=== PATIENT | female | born 1945 | race Caucasian/White ===

== ENCOUNTER 2022-11-27 13:00 | Outpatient (RCR) | payer MEDICARE, OTHER, SELFPAY ==
--- NOTE | 2022-11-17 12:14 | OT.OPOE ---
OT Outpatient Ortho Eval OT Outpatient Ortho Eval Start: 11/17/22 10:36 Freq: Status: Active Protocol: Document 11/17/22 10:41 YANYN (Rec: 11/17/22 10:46 RAUL [id number]) E-signed By Alyce Christian, OTR/L, CLT OT OP Ortho Eval Details Type Type Eval Complexity Low Insurance Information Insurance Information Medicare B Outpatient History/Precautions Current Condition/Medical Diagnosis Referring Provider Yoana Sarkar Treatment Diagnosis S/P Radial Head fracture, R elbow pain Date of Onset 10/15/22 Medical Conditions HTN,Arthritis,Osteoporosis Other Conditions Pt is very healthy, opting to not take Fosamax at this time. 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 THey are getting ready for 1 month stay in [facility] to visit daughters and grandson. Social History Employment Status Retired Hobbies reading, baking, exercising, travelling Fitness 3x/week [place] at 52 [facility] Ortho Subjective Subjective Subjective Solveig Bernadette is an active healthy 77 y/o woman who feels coming down the stage stairs at the [facility] on . She struck both palms and knees ( which she had replaced B in Apr and Jul 2021 .) Pt is having R hand and elbow stiffness, R CMC sore after being in posterior elbow splint with LIDA wrapping, had edema trapped for 2 days before re-wrapping helped. Splinted for 1 week, sling for 2 weeks, now weaned off. She has returned to her fitness classes per [place] from [facility], just not doing resistance with R UE. Pt is finding it tender at end range for managing steering wheel ?turning, reaching behind her self while dressing /mati care, chopping vegetables and carrying dishes across kitchen. Pain Assessment Pain Present Pain Present Pain Reported Location R elbow, R CMC Description Pressure,Dull, Achy,Throbbing, With Movement,Heaviness Intensity 3 Goniometric Comments Goniometric Comments Goniometric Comments Tissue Texture-- Pt with spongy tissue pocketting at medial elbow, point tender over R proximal radial head. Good tissue temperature, normal color. Limb appearance-- Pt w significant OA changes at B CMC joints with squaring noted . [place] 10/10 opposition and 3/4 retropulsion. AROM-- Springy end feel at DONOVAN and TEF, supination and pronation, R WR EX are tender, pulls to radial head for the last 5-10 degrees. MMT tested gently for R WR, guarded only for resisted WR EX 4/5, all other planes 5/5. Outsoles Channel Opener in pos 1 is 35# R (tender , pulls to radial head) and 54 # L. Pos 2 is 25# R (pulls at medial elbow) and 54# L. Victoria pinch is 13# R (CMC tender ), 16# L. 3 pt pinch is 6# R (thumb to elbow tender) and 18#L ( cmc 3/10 tender L). Upper Extremity Special Tests Elbow Cozens Test Negative Left,Positive Right Tenosynovitis Wrist Finklestein Test Negative Left,Negative Right Degenerative Arthritis Hand Trapeziometacarpal Joint Grind Test Positive Left,Positive Right Upper Extremity Special Tests Comments Comments Denies numbness or tingling in B hands OT Problems Problems Problems Decreased Strength,Decreased Range of Motion,Lifting, Gripping,Pinching Other Problems Opening Containers,Dressing Assessment Assessment Assessment Pt is recovering well from her R radial head fracture but is still having some ?difficulty with edema, pain, ROM and strength loss of R thumb/wrist /elbow, along with exacerbation of R CMC arthritis She would benefit from skilled OT to address these areas. Occupational Therapy Treatment Plan - OP Potential Rehabilitation Potential Excellent Set Goals Goals Set with Patient Yes Goals Goals In 12 weeks, pt will demonstrate:? 1) Decreased pn to <2/10 80% of the time with sustained gripping, carrying groceries, reading books and exercise classes. 2) I HEP for stretching, gradual strengthening and self mgmt strategies. 3) improved R student development dean strength to 40# and 3 pinch to 10# with R thumb pain < 1/10. Target Date 02/13/23 Progress set Treatment Plan Treatment Plan Evaluation,Edema Control, Iontophoresis,Joint Mobilization,Manual Therapy, Ultrasound,Therapeutic Exercise,Self-Care/Home Management,Education Expected Frequency 1-2x Week Expected Duration 6-8 Weeks Expected Duration Comments pt will be travelling to [place] -01/07/23 Comment Summary CMC care, look at splinting options, add putty HEP for student development dean/pinch, 1# vs band. Certification Certification I Certify That: Therapy Services Provided, Therapy Plan Established, Therapy Plan Reviewed
--- NOTE | 2022-11-17 12:15 | OT.OPOE ---
OT Outpatient Ortho Eval OT Outpatient Ortho Eval Start: 11/17/22 10:36 Freq: Status: Active Protocol: Document 11/17/22 10:41 YANYN (Rec: 11/17/22 10:46 RAUL [id number]) E-signed By Alyce Christian, OTR/L, CLT OT OP Ortho Eval Details Type Type Eval Complexity Low Insurance Information Insurance Information Medicare B Outpatient History/Precautions Current Condition/Medical Diagnosis Referring Provider Yoana Sarkar Treatment Diagnosis S/P Radial Head fracture, R elbow pain Date of Onset 10/15/22 Medical Conditions HTN,Arthritis,Osteoporosis Other Conditions Pt is very healthy, opting to not take Fosamax at this time. 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 THey are getting ready for 1 month stay in [facility] to visit daughters and grandson. Social History Employment Status Retired Hobbies reading, baking, exercising, travelling Fitness 3x/week [employer] at [employer] [facility] Ortho Subjective Subjective Subjective Solveig Bernadette is an active healthy 77 y/o woman who feels coming down the stage stairs at the [facility] on . She struck both palms and knees ( which she had replaced B in Apr and Jul 2021 .) Pt is having R hand and elbow stiffness, R CMC sore after being in posterior elbow splint with LIDA wrapping, had edema trapped for 2 days before re-wrapping helped. Splinted for 1 week, sling for 2 weeks, now weaned off. She has returned to her fitness classes per [place] from [employer], just not doing resistance with R UE. Pt is finding it tender at end range for managing steering wheel ?turning, reaching behind her self while dressing /mati care, chopping vegetables and carrying dishes across kitchen. Pain Assessment Pain Present Pain Present Pain Reported Location R elbow, R CMC Description Pressure,Dull, Achy,Throbbing, With Movement,Heaviness Intensity 3 Goniometric Comments Goniometric Comments Goniometric Comments Tissue Texture-- Pt with spongy tissue pocketting at medial elbow, point tender over R proximal radial head. Good tissue temperature, normal color. Limb appearance-- Pt w significant OA changes at B CMC joints with squaring noted . [place] 10/10 opposition and 3/4 retropulsion. AROM-- Springy end feel at DONOVAN and TEF, supination and pronation, R WR EX are tender, pulls to radial head for the last 5-10 degrees. MMT tested gently for R WR, guarded only for resisted WR EX 4/5, all other planes 5/5. Break Up Worker in pos 1 is 35# R (tender , pulls to radial head) and 54 # L. Pos 2 is 25# R (pulls at medial elbow) and 54# L. Victoria pinch is 13# R (CMC tender ), 16# L. 3 pt pinch is 6# R (thumb to elbow tender) and 18#L ( cmc 3/10 tender L). Upper Extremity Special Tests Elbow Cozens Test Negative Left,Positive Right Tenosynovitis Wrist Finklestein Test Negative Left,Negative Right Degenerative Arthritis Hand Trapeziometacarpal Joint Grind Test Positive Left,Positive Right Upper Extremity Special Tests Comments Comments Denies numbness or tingling in B hands OT Problems Problems Problems Decreased Strength,Decreased Range of Motion,Lifting, Gripping,Pinching Other Problems Opening Containers,Dressing Assessment Assessment Assessment Pt is recovering well from her R radial head fracture but is still having some ?difficulty with edema, pain, ROM and strength loss of R thumb/wrist /elbow, along with exacerbation of R CMC arthritis She would benefit from skilled OT to address these areas. Occupational Therapy Treatment Plan - OP Potential Rehabilitation Potential Excellent Set Goals Goals Set with Patient Yes Goals Goals In 12 weeks, pt will demonstrate:? 1) Decreased pn to <2/10 80% of the time with sustained gripping, carrying groceries, reading books and exercise classes. 2) I HEP for stretching, gradual strengthening and self mgmt strategies. 3) improved R packing machine pilot can router strength to 40# and 3 pinch to 10# with R thumb pain < 1/10. Target Date 02/13/23 Progress set Treatment Plan Treatment Plan Evaluation,Edema Control, Iontophoresis,Joint Mobilization,Manual Therapy, Ultrasound,Therapeutic Exercise,Self-Care/Home Management,Education Expected Frequency 1-2x Week Expected Duration 6-8 Weeks Expected Duration Comments pt will be travelling to [place] -01/07/23 Comment Summary CMC care, look at splinting options, add putty HEP for packing machine pilot can router/pinch, 1# vs band. Certification Certification I Certify That: Therapy Services Provided, Therapy Plan Established, Therapy Plan Reviewed Recertification Information Recertification Information Initial Certification Date 11/17/22 Recertification Due Date 02/13/23 Provider Signature Shows Agreement With POC & Medical Necessity Physician Comment/Change Comment or Changes Physician NPI Number #
--- NOTE | 2022-11-27 18:02 | OT.OPODN ---
OT Outpatient Ortho Daily Note OT Outpatient Ortho Daily Note Start: 11/17/22 10:36 Freq: Status: Active Protocol: Document 11/27/22 17:49 LCThierry (Rec: 11/27/22 18:02 LCN [id number]) E-signed By Alyce Christian, OTR/L, CLT Type of Note Type of Note Type of Note Daily Note,Discharge Note,Note To MD Visit Number 3 Insurance Information Insurance Information Medicare B Outpatient History/Precautions Current Condition/Medical Diagnosis Referring Provider Yoana Sarkar Treatment Diagnosis S/P Radial Head fracture, R elbow pain Date of Onset 10/15/22 Medical Conditions HTN,Arthritis,Osteoporosis Other Conditions Pt is very healthy, opting to not take Fosamax at this time. 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 THey are getting ready for 1 month stay in [facility] to visit daughters and grandson. Social History Employment Status Retired Hobbies reading, baking, exercising, travelling Fitness 3x/week [employer] at [address] [facility] Ortho Subjective Subjective Subjective Pt's DONOVAN and TEF are at full ROM and Solveig has progressed to 2# weights to support exercise class for all shoulder/\elbow/wrist planes. No p[ain with any home maintenance, driving or lifting groceries. Pain Assessment Pain Present Pain Present Pain Reported Location R elbow, R CMC Description Pressure,Dull, Achy,Throbbing, With Movement,Heaviness Intensity 1 OT OP Daily Ortho Note/Assessment Therapeutic Exercise Therapeutic Exercise Minutes (minutes) 10 Therapeutic Exercise Comments Reviewed goals and progress/ objective data. Reviewed strengthening HEP for R faith doctor, rolling,alternating 2 pt pinching and Victoria pinch ( ( with mp, IP supported per thumb pn CMC OA), tolerated well with yellow putty. Upgraded to 2-3# weights with 20 reps each of R UE biceps, SH press, chest press and standing row triceps. Can also do trial of medium red band with slower reps in [employer] class. Manual Therapy Manual Therapy Minutes (minutes) 16 Manual Therapy Comments OTR completes STM to mobilize soft tissue surrounding joint capsule,?ligament structures and muscle groups of R medial, lateral and muscle bulk of R forearm, biceps, triceps and spongy areas at med/lat epicondyle to support freedom of movement and healing of structures. Well tolerated, helpful before HEP. Goniometric Comments Goniometric Comments Goniometric Comments 11/27/22-- [employer] pos 1 improved to 50# R and 58# L. P{os 2 is 46# R and 60# L. Victoria pinch is 13#R and 15# L. 3 pt pinch is 15# R and 20.5# L. From Evall--Tissue Texture-- Pt with spongy tissue pocketting at medial elbow, point tender over R proximal radial head. Good tissue temperature, normal color. Limb appearance-- Pt w significant OA changes at B CMC joints with squaring noted . [place] 10/10 opposition and 3/4 retropulsion. AROM-- Springy end feel at DONOVAN and TEF, supination and pronation, R WR EX are tender, pulls to radial head for the last 5-10 degrees. MMT tested gently for R WR, guarded only for resisted WR EX 4/5, all other planes 5/5. [employer] in pos 1 is 35# R (tender , pulls to radial head) and 54 # L. Pos 2 is 25# R (pulls at medial elbow) and 54# L. Victoria pinch is 13# R (CMC tender ), 16# L. 3 pt pinch is 6# R (thumb to elbow tender) and 18#L ( cmc 3/10 tender L). Upper Extremity Special Tests Elbow Cozens Test Negative Left,Positive Right Tenosynovitis Wrist Finklestein Test Negative Left,Negative Right Degenerative Arthritis Hand Trapeziometacarpal Joint Grind Test Positive Left,Positive Right Upper Extremity Special Tests Comments Comments Denies numbness or tingling in B hands OT Problems Problems Problems Decreased Strength,Decreased Range of Motion,Lifting, Gripping,Pinching Other Problems Opening Containers,Dressing Patient Potential Excellent Assessment Assessment Assessment Pt encouraged to cont w slow, steady progression of resistance. Improved motion for TEF and DONOVAN, full ROM, hard end feel, no pain. All goals met and pt agress she is ready for discharge from OT. Pt is recovering well from her R radial head fracture but is still having some ?difficulty with edema, pain, ROM and strength loss of R thumb/wrist /elbow, along with exacerbation of R CMC arthritis She would benefit from skilled OT to address these areas. Occupational Therapy Treatment Plan - OP Potential Rehabilitation Potential Excellent Set Goals Goals Set with Patient Yes Goals Goals In 12 weeks, pt will demonstrate:? 1) Decreased pn to <2/10 80% of the time with sustained gripping, carrying groceries, reading books and exercise classes. (GOAL MET 11/27/22) 2) I HEP for stretching, gradual strengthening and self mgmt strategies. (GOAL MET) 3) improved R faith doctor strength to 40# and 3 pinch to 10# with R thumb pain < 1/10. (GOAL EXECEEDED 11/27/22 [employer] pos 1 improved to 50# R and 58# L. P {os 2 is 46# R and 60# L. Victoria pinch is 13#R and 15# L. 3 pt pinch is 15# R and 20.5# L. ) Target Date 02/13/23 Progress set Treatment Plan Treatment Plan Evaluation,Edema Control, Iontophoresis,Joint Mobilization,Manual Therapy, Ultrasound,Therapeutic Exercise,Self-Care/Home Management,Education Expected Frequency 1-2x Week Expected Duration 6-8 Weeks Expected Duration Comments pt will be travelling to [place] -01/07/23 Comment Summary CMC care, look at splinting options, add putty HEP for faith doctor/pinch, 1# vs band. OT Treatment Minutes Treatment Minutes Untimed Treatment Minutes 0 Timed Treatment Minutes 25 Total Treatment Minutes 25 Occupational Therapy Billing Units Billing Units Manual Therapy 1 Self Care/Home Management 1 Certification Certification I Certify That: Therapy Services Provided, Therapy Plan Established, Therapy Plan Reviewed Recertification Information Recertification Information Initial Certification Date 11/17/22 Recertification Due Date 02/13/23 Provider Signature Shows Agreement With POC & Medical Necessity Physician Comment/Change Comment or Changes Physician NPI Number # Discharge Note Discharge Note Discharge Summary Pt's DONOVAN and TEF are at full ROM and Solveig has progressed to 2# weights to support exercise class for all shoulder/\elbow/wrist planes. No pain with any home maintenance, driving or lifting groceries. [employer] pos 1 improved to 50# R and 58# L. P{os 2 is 46# R and 60# L. Victoria pinch is 13#R and 15# L. 3 pt pinch is 15# R and 20.5# L. Date of First Visit for Therapy 11/16/22 Date of Last Visit for Therapy 11/27/22 Initial Primary Functional Limitations/ Solveig Bernadette is an active [employer]cer[employer] healthy 77 y/o woman who feels coming down the stage stairs at the [employer] on . She struck both palms and knees ( which she had replaced B in Apr and Jul 2021 .) Pt is having R hand and elbow stiffness, R CMC sore after being in posterior elbow splint with LIDA wrapping, had edema trapped for 2 days before re-wrapping helped. Splinted for 1 week, sling for 2 weeks, now weaned off. She has returned to her fitness classes per [place] from [employer]ark[employer], just not doing resistance with R UE. Pt is finding it tender at end range for managing steering wheel turning, reaching behind her self while dressing/mati care, chopping vegetables and carrying dishes across kitchen . Initial Pain Level 4 Pain Level at Discharge 0 Interventions Provided During Treatment Joint Mobilization,Manual Therapy,Therapeutic Exercise Recommendations/Reason for Discharge Met All Therapy Goals
== END 2022-11-30 09:29 | disposition home or self-care (01) ==
PROVIDERS: PCP Family Medicine; Visit Provider Physician Assistant Surgical
DX: S52.121A Displaced fracture of head of right radius, initial encounter for closed fracture (principal); Z51.89 Encounter for other specified aftercare
CPT/HCPCS: 97110; 97140; 97165; 97535; X5282

== ENCOUNTER 2024-07-31 16:15 | Outpatient (RCR) | payer MEDICARE, OTHER, SELFPAY ==
--- NOTE | 2024-07-18 14:15 | PT.OPEX ---
PT Center Outpatient Eval PT [facility] Outpatient Eval Start: 07/18/24 07:16 Freq: Status: Active Protocol: Document 07/18/24 07:20 REGULO (Rec: 07/18/24 14:14 REGULO [id number]) E-signed By Ralf Topete DPT Physical Therapy Outpatient Evaluation Insurance Information Recert Due Date 10/16/24 Insurance Name Medicare B Medical Diagnosis lower thoracic back pain Treating Diagnosis low back pain thoracic back pain muscle weakness Referring MD leanna ochoa Subjective Subjective Solveig comes into clinic with complaints of mid-low back pain. States the pain has been ongoing intermittently for the past few months. Overall has been consistent with bed mobility, standing over a sink while cleaning, or leaning to far back/fwd while seated. Feels like the pain is more R sided overall. Is looking for a routine to manage things. Finds heating the back significantly helps pain. NO NT symptoms. no low back hip pain. Pain Comments 02/27 Current Work Status Retired Objective Other/Pertinent Objective THORACIC ROM RROT mild loss increased R sided pain LROT no loss increased R sided stretch RSBmod loss increased pinching pain LSB min loss LUMBAR ROM Flexion: no loss no pain Extension: mod loss tight feeling on R side JOINT MOBILITY/PALPATION increased pain with L rotation in SL increased tenderness with central PA along T9-12 SPECIAL TESTS Straight leg raise:- Crossed straight leg raise:- SI/HIPI tests SOHAN - FADIR - Assessment Assessment/Impression Pt is a 79 yr old female who presents with concerns of thoracic to lumbar pain. Patient also has notable objective findings including limited ROM, impaired core stability with transfers, decreased strength also likely contributing to the problem. Patient is a good candidate for skilled therapy to target deficits described above. Skilled PT intervention is necessary for use of therapeutic exercise manual therapy, neuromuscular re- education, and therapeutic activity. Functional impairments include difficulty with: range of motion, sitting, bed transfers. See appropriate sections of PT eval for complete list of goals and POC. D/C plan and criteria is for pt to achieve the goals as listed below or until max rehab potential is met. Pt was agreeable with plan of care and goals established. Plan of Care Rehabilitation Potential Good Physical Therapy Goals GOALS Pt will be independent with HEP within 8 weeks to allow for independence and continued improvement past formal therapy Patient will demonstrate/ report ability to sit for 8 minutes with pain level <1/10, to allow for personal/ community transportation within 8 weeks Pt will be able to perform bed mobility without pain to improve ADLs within 8 weeks Coordination/Communication With Referral Source Treatment Plan/Direct Interventions Gait Training,Joint Mobilization,Manual Therapy, Neuromuscular Re-ed,Self-Care/ Home Management,Therapeutic Activities,Therapeutic Exercises Frequency/Duration 1-2 visits a week for 8 weeks Patient Will Be Discharged From Therapy Completion of LTG(s), Independent w/HEP, Independently Progressing Evaluation Billing Untimed Code Treatment Minutes 25 Complexity Low Certification Information Initial Certification Date 07/18/24 Ending Certification Date 10/16/24 Provider Signature Required Yes Provider Signature Shows Agreement With POC & Medical Necessity Physician NPI Number Write NPI# Here Physician Comment/Change : Physician Signature & Date Requested Please Sign/Date Here
--- NOTE | 2024-07-25 09:50 | PT.OP2DDNX ---
PT [facility] 2nd Diagnosis Daily Note PT [facility] Outpatient 2nd Diag Daily Note Start: 07/25/24 09:37 Freq: Status: Active Protocol: Document 07/25/24 09:37 SARAH (Rec: 07/25/24 09:49 KLV [id number]) E-signed By Kathe Sunshine, PT PT OP 2nd Diagnosis Daily Note Visit Information Note Type Evaluation-2nd Diagnosis Visit Number 1 Physician Authorized Visits Eval and treat Insurance Information Recert Due Date 10/19/24 Insurance Name [employer],Medicare B Medical Diagnosis ITB syndrome B Presence of artificial knee joint B Treating Diagnosis B knee pain, muscle weakness Referring MD Samaniego Subjective Subjective Solveig reports to PT with primary complaint of B knee pain (L>R). Pain wraps around patella but mainly concentrated to patella tendon region with squatting, sit to stands and descending stairs. Denies specific injury. She continues to be activate with silver sneakers 3x/wk with main limitation being squatting. Recent x-rays were unremarkable and show good positioning of artificial knees B. She has not tried anything else for this condition. She modifies descending stairs to step to with L leading. PMH: HTN, B TKA Pain Comments 4-5/10 L 2-3/10 R Objective Other/Pertinent Objective Knee ROM: 0-123 B however end range pain patellar tendon B TTP patellar tendon, no joint line pain or medial/lateral pain to palpation Squat: quad dominant with slight genu valgus R>L Zacarias test: - Julio test: + B LE Strength (R/L): -Knee Ext: R: 4/5, L: 4-/5 -Knee Flex: R: 5/5, L: 5/5 -Hip Abd: R: 4-/5, L: 4-/5 -Hip Ext: R: 4+/5, L: 4+/5 -Hip Flx: R: 4/5, L: 4/5 Quad set good SLR: x10 without lag however significantly fatiguing Functional Test Performed & Score LEFS: 78/80 Patient Instructed in Risks/Benefits Yes Therapeutic Exercise Therapeutic Exercise Minutes (minutes) 18 Therapeutic Exercise: To Restore Access Code: [email or web address] Functional Status Handout - Supine Single Knee to Chest Stretch - 2 x daily - 5-7 x weekly - 1 sets - 1 reps - 60 hold - Supine Quadricep Sets - 2 x daily - 5-7 x weekly - 1 sets - 10 reps - 5 hold - Active Straight Leg Raise with Quad Set - 2 x daily - 5 -7 x weekly - 2 sets - 10 reps - Sidelying Hip Abduction - 2 x daily - 5-7 x weekly - 1-2 sets - 10 reps - Squat with Chair Touch - 2 x daily - 5-7 x weekly - 3 sets - 10 reps Treatment Minutes Untimed Code Treatment Minutes 18 Timed Code Treatment Minutes 18 Total Treatment Time 36 2nd Diagnosis Billing Complexity-2nd Diagnosis Low Billing Units Therapeutic Exercise Units 1 Assessment/Impression Assessment/Impression Patient is a 79 year old female presenting to physical therapy for evaluation and treatment of B knee pain with gradual and insidious onset with history of B TKA with stable component placement. Patient presents with limited end range quad/HF mobility, quad weakness, fair squatting/ sit to stand mechanics, tenderness to patellar tendon. These impairments are limiting the patients ability to squat, sit<>stand transfers and descending stairs without pain B (L>R). Patient appears motivated to participate in PT and presents with good prognosis to improve mobility, strength, proprioception and return to functional activities with skilled physical therapy intervention. Plan of Care Physical Therapy Goals In 4 visits: Pt will demonstrate good squatting mechanics without cuing with <2/10 knee pain Pt will demonstrate 5/5 quad and hip strength in order to progress to higher level functional exercises/activity In 8 visits: Pt will be able to squat and descend a flight of stairs with <1/10 knee pain Pt will exhibit 2 pt improvement in LEFS Outcome measure to demonstrate functional improvement and progress towards goals Daily Plan of Care Continue per POC Certification Information Initial Certification Date 07/25/24 Ending Certification Date 10/19/24 Provider Signature Required Yes Provider Signature Shows Agreement With POC & Medical Necessity Physician NPI Number Write NPI# Here Physician Comment/Change :
== END 2024-10-24 13:48 | disposition home or self-care (01) ==
PROVIDERS: PCP Family Medicine; Visit Provider Family Medicine
DX: M76.31 Iliotibial band syndrome, right leg (principal); M76.32 Iliotibial band syndrome, left leg; Z51.89 Encounter for other specified aftercare; Z96.653 Presence of artificial knee joint, bilateral
CPT/HCPCS: 97110; 97161